=== PATIENT | male | born 1945 | race Caucasian/White ===

== ENCOUNTER 2021-03-31 13:22 | Outpatient (CLI) | payer MEDICARE | END 2021-03-31 13:23 | disposition home or self-care (01) | LOC: CSHMRI 13:22 | PROVIDERS: ATTEND Orthopaedic Surgery | DX: M25.511 Pain in right shoulder (principal); M19.011 Primary osteoarthritis, right shoulder; M25.711 Osteophyte, right shoulder; M94.8X1 Other specified disorders of cartilage, shoulder; M75.111 Incomplete rotator cuff tear or rupture of right shoulder, not specified as traumatic; M65.811 Other synovitis and tenosynovitis, right shoulder; M25.411 Effusion, right shoulder; M67.813 Other specified disorders of tendon, right shoulder ==

== ENCOUNTER 2021-09-23 14:11 | Outpatient (CLI) | payer MEDICARE ==
[~2021-09-23 14:11] MED LIST: Magnevist 469MG/ML 20 ML VIAL ONE
== END 2021-09-23 14:12 | disposition home or self-care (01) ==
LOC: CSHMRI 14:11
PROVIDERS: ATTEND Orthopaedic Surgery
DX: R22.42 Localized swelling, mass and lump, left lower limb (principal); M25.862 Other specified joint disorders, left knee; S83.282A Other tear of lateral meniscus, current injury, left knee, initial encounter; S83.242A Other tear of medial meniscus, current injury, left knee, initial encounter; M71.22 Synovial cyst of popliteal space [Baker], left knee
CPT/HCPCS: 82565; A9579

== ENCOUNTER 2022-08-18 11:33 | Outpatient (CLI) | payer OTHER | END 2022-08-18 11:34 | disposition home or self-care (01) | LOC: CSHRAD 11:33 | PROVIDERS: ATTEND Physician Assistant | DX: M79.672 Pain in left foot (principal); M79.89 Other specified soft tissue disorders ==